=== PATIENT | male | born 1965 | race Caucasian/White ===

== ENCOUNTER 2016-12-20 18:38 | Emergency (ER) | payer OTHER ==
[2016-12-20] MEDS ORDERED: ONDANSETRON HCL 4 MG/2 ML VIAL ONE ×2 (19:40→20:53)
[2016-12-20 19:48] LABS: BLOOD UREA NITROGEN 19 mg/dL (9-20); CALCIUM 9.6 mg/dL (8.4-10.2); CHLORIDE 109 mmol/L (98-107); EST GLOMERULAR FILTRATION RATE 52 mL/min; GLUCOSE 78 mg/dL (70-100); MAGNESIUM 2.2 mg/dL (1.6-2.3); SODIUM 140 mmol/L (137-145)
[2016-12-20 19:56] LABS: BASOPHILS 0.4 % (0.0-2.0); EOSINOPHILS 1.8 % (0.0-6.0); EOSINOPHILS# 0.2 X 10^3uL (0.0-0.4); LYMPHOCYTES# 2.2 X 10^3uL (0.8-3.8); MEAN CELL VOLUME 101.8 fL (80.0-100.0); MEAN CORPUS. HGB CONCENTRATION 34.1 g/dL (32.0-36.0); MEAN CORPUSCULAR HEMOGLOBIN 34.7 pg (29.0-35.0); MEAN PLATELET VOLUME 7.4 fL (7.4-10.4); MONOCYTES 6.2 % (2.0-10.0); MONOCYTES# 0.6 X 10^3uL (0.2-1.0); NEUTROPHILS 68.6 % (54.0-75.0); NEUTROPHILS# 6.7 X 10^3uL (2.6-6.7); PLATELET COUNT 450 X 10^3uL (130-440); RED BLOOD COUNT 4.32 X 10^6uL (4.20-6.10); RED CELL DISTRIBUTION WIDTH 15.3 % (11.5-14.5); WHITE BLOOD COUNT 9.7 X 10^3uL (3.9-10.7)
[2016-12-20 20:02] LABS: TROPONIN I < 0.012 ng/mL (0.00-0.034)
[2016-12-20] MEDS ORDERED: IPRATROPIUM/ALBUTEROL 0.5/3 MG 3 ML AMPUL.NEB INHALATION ONE (20:52)
[2016-12-20] MEDS ORDERED: METHYLPREDNISOLONE SOD 125 MG/2 ML VIAL ONE (20:52)
--- NOTE | 2016-12-21 00:51 | ER PHYSICIAN DOCUMENTATION ---
Physician Documentation [place] Name:Jamie Mayorga Age:51 yrs Sex:Male :1965 Arrival Date:12/20/2016 Time:18:38 BedTrauma-C Private MD:Gerardo Hutson ED, John Disposition: 12/21/16 00:43 Discharged to Home/Self Care. Impression: Vomiting - Dehydration, COPD Exacerbation. - Condition is Good. - Discharge Instructions: COPD FLARE, VOMITING (4y-Adult). - Prescriptions for Prednisone 20 mg Oral Tablet - take 2 tablet by ORAL route once daily for 5 days; 10 tablet. Zofran 4 mg Oral Tablet - take 1-2 tablet by ORAL route every 4-6 hours As needed; 10 tablet. - Medical Reconciliation form form. - Follow up: Gerardo Hutson; When: 2 - 3 days; Reason: Continuance of care. - Problem is new. - Symptoms have improved. HPI: 12/21 00:35 This 51 yrs old Male presents to ER via Private Vehicle with complaints of jm Nausea/Vomiting, Chest Tightness. 12/20 19:00 Possible causes: unknown. Associated signs and symptoms: Pertinent negatives: abdominal jm pain. Severity of symptoms: in the emergency department the symptoms are unchanged. Pt also w mild chest tightness- Hx of COPD. Pt feels he is having a flare. Pt has been vomiting all day and feels weak. . 12/21 00:35 The patient presents to the emergency department with nausea, with vomiting. jm Historical: - Allergies: No known drug Allergies; - Home Meds: 1. Bupropion Oral 2. topiramate oral 3. Trazodone Oral 4. cyanocobalamin (vitamin B-12) oral 5. pantoprazole oral 6. gabapentin oral 7. Mirtazapine Oral 8. tamsulosin oral 9. Albuterol Nebulizer 10. duoneb 11. Tramadol Oral 12. Aspirin Oral - PMHx: barrets esophagus; hearing loss; PTSD; panic disorder; DEPRESSION; macrocytosis; OSTEOPOROSIS; BACK PAIN; lumbar compression fx; leukocytosis; thrombocytosis; MRSA; PNEUMONIA; pleural effusion; ANEMIA; oropharyngeal dysphagia; esophageal tumor; GERD; Vomiting - Dehydration (July 03, 2015); Diarrhea (July 03, 2015); pleural effusion; ANEMIA; low back pain; chronic alcoholism in remission; empyema of pleura; PNEUMOTHORAX; peptic ulcer disease; - PSHx: esophagus; chest tubes; - Tetanus: < 10 years. - Ebola Screening: : Patient negative for fever greater than or equal to 101.5 degrees Fahrenheit, and additional compatible Ebola Virus Disease symptoms. Patient denies exposure to infectious person. Patient denies travel to an Ebola-affected area in the 21 days before illness onset. No symptoms or risks identified at this time. . - Immunization history: Unable to Obtain. - Social history: Smoking status: Patient states former smoker of tobacco. ROS: 12/20 19:00 Constitutional: Negative for fatigue, fever. Cardiovascular: Positive for pressure. Respiratory: Positive for shortness of breath. Abdomen/GI: Positive for nausea, vomiting, Negative for diarrhea. Exam: 19:00 Constitutional: The patient appears alert, awake, pale. 19:00 Cardiovascular: Rate: normal, Rhythm: regular. 19:00 Respiratory: Respirations: normal, Breath sounds: bronchial sounds, that are mild, are scattered. 19:00 Abdomen/GI: Bowel sounds: normal, Palpation: abdomen is soft and non-tender. 19:00 Neuro: Mentation: is normal, Memory: is normal, Gait: is steady. Vital Signs: 18:46 Pulse Ox 88% ; rs 18:50 BP 91 / 62 (auto/); rs 18:51 Pulse 89 MON; Resp 14; Pulse Ox 95% ; rs 19:21 BP 82 / 58 (auto/); rs 19:21 Pulse 84 MON; Resp 21; Pulse Ox 97% ; rs 19:26 Pulse 84 MON; Resp 13; Pulse Ox 97% ; rs 19:30 BP 79 / 59 (auto/); rs 19:31 Pulse 82 MON; Resp 12; Pulse Ox 96% ; rs 19:36 Pulse 81 MON; Resp 19; Pulse Ox 96% ; rs 19:40 BP 88 / 61 (auto/); rs 19:41 Pulse 78 MON; Resp 16; Pulse Ox 96% ; rs 19:46 Pulse 77 MON; Resp 19; Pulse Ox 96% ; rs 19:50 BP 85 / 58 (auto/); rs 19:51 Pulse 78 MON; Resp 19; Pulse Ox 97% ; rs 19:56 Pulse 75 MON; Resp 12; Pulse Ox 97% ; rs 20:00 BP 88 / 61 (auto/); rs 20:01 Pulse 77 MON; Resp 15; Pulse Ox 97% ; rs 20:06 Pulse 79 MON; Resp 26; Pulse Ox 96% ; rs 20:10 BP 96 / 58 (auto/); rs 20:11 Pulse 78 MON; Resp 14; Pulse Ox 98% ; rs 20:16 Pulse 77 MON; Resp 16; Pulse Ox 97% ; rs 20:20 BP 76 / 55 (auto/); rs 20:21 Pulse 74 MON; Resp 13; Pulse Ox 96% ; rs 20:26 Pulse 74 MON; Resp 13; Pulse Ox 97% ; rs 20:30 BP 83 / 56 (auto/); rs 20:31 Pulse 72 MON; Resp 19; Pulse Ox 98% ; rs 20:36 Pulse 75 MON; Resp 17; Pulse Ox 97% ; rs 20:40 BP 85 / 59 (auto/); rs 20:41 Pulse 73 MON; Resp 18; Pulse Ox 99% ; rs 20:46 Pulse 74 MON; Resp 18; Pulse Ox 98% ; rs 20:50 BP 89 / 60 (auto/); rs 20:51 Pulse 76 MON; Resp 17; Pulse Ox 100% ; rs 20:56 Pulse 77 MON; Resp 16; Pulse Ox 95% ; rs 21:00 BP 87 / 59 (auto/); rs 21:01 Pulse 77 MON; Resp 17; Pulse Ox 97% ; rs 21:06 Pulse 77 MON; Resp 15; Pulse Ox 96% ; rs 21:10 BP 94 / 58; Pulse 78; Resp 11; Pulse Ox 95% on 2.5 lpm NC; Pain 0/10; rs 21:20 BP 80 / 54; Pulse 79; Resp 17; Pulse Ox 95% 2.5 lpm ; Pain 0/10; rs 22:20 BP 96 / 62 (auto/); bw2 12/21 00:50 BP 98 / 62; Pulse 72; Resp 18; Pulse Ox 94% on R/A; Pain 0/10; bw2 MDM: 12/20 18:51 Patient medically screened. tl1 12/21 01:32 Differential diagnosis: viral gastroenteritis, dehydration, COPD flare. Data reviewed: jm vital signs, nurses notes, lab test result(s), EKG, radiologic studies, and as a result, I will discharge patient. Test interpretation: by ED physician or midlevel provider: plain radiologic studies, ECG. Counseling: I had a detailed discussion with the patient and/or guardian regarding: the historical points, exam findings, and any diagnostic results supporting the discharge/admit diagnosis, lab results, radiology results, the need for outpatient follow up, with the patient's primary care provider. Medication response: The patient's symptoms have improved. Response to treatment: the patient's symptoms have markedly improved after treatment. ED course: Labs WNL. CXR/EKG normal. Pt very dehydrated b/c it took 3LNS to get him to make 20cc of urine (normal). Pt left after 4th L, but still w mildly low BPs. Pt felt much better on DC however. Will send w Zofran and prednisone for COPD flare. . 12/20 19:49 Order name: LACTATE; Complete Time: 19:53 EDMS 12/20 19:59 Order name: CBC AUTO DIF, MDIF/RMOR IF IND; Complete Time: 20:09 EDMS 12/20 20:03 Order name: BASIC METABOLIC PANEL; Complete Time: 20:09 EDMS 12/20 20:03 Order name: MAGNESIUM; Complete Time: 20:09 EDMS 12/20 20:03 Order name: BNP,NT-PRO; Complete Time: 20:09 EDMS 12/20 20:03 Order name: TROPONIN I; Complete Time: 20:09 EDMS 12/21 14:09 Order name: CXR 2V [id number] EDMS 12/20 18:41 Order name: 12-lead EKG; Complete Time: 19:44 tl1 12/20 18:41 Order name: Iv Saline Lock; Complete Time: 19:44 tl1 12/20 18:41 Order name: Place Patient On Monitor; Complete Time: 19:44 tl1 12/20 18:41 Order name: Pulse Ox Continuous; Complete Time: 19:44 tl1 Dispensed Medications: Completed: NS 0.9% 1000 ml 1000 ml IV at bolus in right hand once via [place] Tubing Completed: NS 0.9% 1000 ml 1000 ml IV at bolus in right hand once via [place] Tubing 12/20 19:30 Drug: NS 0.9% 1000 ml; Volume: 1000 ml; Route: IV; Rate: bolus; Site: right hand; rs Delivery: [place] [facility]ing; 20:10 Follow up: IV Status: Completed infusion; IV Intake: 1000ml rs 19:30 Drug: Zofran 4 mg; Route: IVP; Rate: 2 mg/min; Infused Over: 2 mins; Site: right hand; rs 20:15 Drug: NS 0.9% 1000 ml; Volume: 1000 ml; Route: IV; Rate: bolus; Site: right hand; rs Delivery: [place] Tubing; 21:15 Follow up: IV Status: Completed infusion; IV Intake: 1000ml rs 20:15 Drug: Zofran 4 mg; Route: IVP; Rate: 2 mg/min; Infused Over: 2 mins; Site: right hand; rs 21:18 Follow up: Response: Nausea is decreased rs 20:40 Drug: Solu-MEDROL 125 mg; Route: IVP; Rate: 62.5 mg/min; Infused Over: 2 mins; Site: rs right hand; 21:14 Follow up: Response: No adverse reaction rs 20:40 Drug: DuoNeb (Albuterol 2.5 mg, Atrovent 0.5 mg); 3 ml; Route: Nebulizer; Infused Over: rs 8 mins; 21:15 Follow up: Response: No adverse reaction rs 21:30 Drug: NS 0.9% 1000 ml; Volume: 1000 ml; Route: IV; Rate: bolus; Site: right hand; bw2 Delivery: [place] Tubing; 12/21 00:18 Follow up: IV Status: Completed infusion bw2 00:00 Drug: NS 0.9% 1000 ml; Route: IV; Rate: bolus; Site: right hand; bw2 00:44 Follow up: IV Status: Completed infusion bw2 Point of Care Testing: Urine Dip: 00:22 pH: 5.5; ; Specific [place]: 1.025; Ketones: Negative; Glucose: Negative; Protein: bw2 Negative; Leukocytes: Negative; Nitrite: Negative ; Blood: Negative; Signatures: Sandra Stanley RN RN rs Gilberto Rivas MD MD jm Leigh, Tom, MD MD 1 Cecy Hansen bw2
--- NOTE | 2016-12-21 00:51 | ER NURSING DOCUMENTATION ---
Nurse's Notes [facility] Name:Jamie Mayorga Age:51 yrs Sex:Male :1965 Arrival Date:12/20/2016 Time:18:38 BedTrauma-C Private MD:Gerardo Hutson Diagnosis:Vomiting - Dehydration;COPD Exacerbation Presentation: 12/20 18:41 Presenting complaint: Patient states: Started feeling sick 2 am with cough and rs vomiting, and chest tightness. He is SOB and has had chills without fever. Hx of COPD, pneumonia, bronchitis, ex-smoker x 1 yr. Uses oxygen at 2.5 L/min prn. Transition of care: patient was not received from another setting of care. Notified ED Physician of patient's arrival and CC Dr. Lundberg notified. 18:41 Acuity: JAYJAY 2 rs 18:41 Method Of Arrival: Private Vehicle rs Triage Assessment: 19:45 General: Appears ill, uncomfortable, well developed, well nourished, Behavior is rs cooperative, pleasant. Pain: Complains of pain in chest tightness. EENT: No deficits noted. Neuro: No deficits noted. Level of Consciousness is awake, alert, Oriented to person, place, time, event. Cardiovascular: Capillary refill is > 3 seconds Heart tones S1 S2 present Edema is absent. Pulses are 2+ in right radial artery Reports fatigue, Nausea shortness of breath Vomiting Denies syncope. Respiratory: Airway is patent Trachea midline Respiratory effort is even, unlabored, Respiratory pattern is regular, symmetrical, Sputum is brown Breath sounds are diminished in left posterior lower lobe, right posterior middle lobe and right posterior lower lobe. GI: Abdomen is flat, non- distended Bowel sounds present X 4 quads. Abd is soft and non tender Reports nausea, vomiting, Denies diarrhea. Derm: Skin is pale, Skin temperature is warm. Musculoskeletal: No deficits noted. Historical: - Allergies: No known drug Allergies; - Home Meds: 1. Bupropion Oral 2. topiramate oral 3. Trazodone Oral 4. cyanocobalamin (vitamin B-12) oral 5. pantoprazole oral 6. gabapentin oral 7. Mirtazapine Oral 8. tamsulosin oral 9. Albuterol Nebulizer 10. duoneb 11. Tramadol Oral 12. Aspirin Oral - PMHx: barrets esophagus; hearing loss; PTSD; panic disorder; DEPRESSION; macrocytosis; OSTEOPOROSIS; BACK PAIN; lumbar compression fx; leukocytosis; thrombocytosis; MRSA; PNEUMONIA; pleural effusion; ANEMIA; oropharyngeal dysphagia; esophageal tumor; GERD; Vomiting - Dehydration (July 03, 2015); Diarrhea (July 03, 2015); pleural effusion; ANEMIA; low back pain; chronic alcoholism in remission; empyema of pleura; PNEUMOTHORAX; peptic ulcer disease; - PSHx: esophagus; chest tubes; - Tetanus: < 10 years. - Ebola Screening: : Patient negative for fever greater than or equal to 101.5 degrees Fahrenheit, and additional compatible Ebola Virus Disease symptoms. Patient denies exposure to infectious person. Patient denies travel to an Ebola-affected area in the 21 days before illness onset. No symptoms or risks identified at this time. . - Immunization history: Unable to Obtain. - Social history: Smoking status: Patient states former smoker of tobacco. Screenin:52 Infectious Disease Risk None. Abuse screen: Denies threats or abuse. Nutritional rs screening: No deficits noted. Assessment: 21:19 Reassessment: Patient states feeling better. Patient states symptoms have improved. rs Vital Signs: 18:46 Pulse Ox 88% ; rs 18:50 BP 91 / 62 (auto/); rs 18:51 Pulse 89 MON; Resp 14; Pulse Ox 95% ; rs 19:21 BP 82 / 58 (auto/); rs 19:21 Pulse 84 MON; Resp 21; Pulse Ox 97% ; rs 19:26 Pulse 84 MON; Resp 13; Pulse Ox 97% ; rs 19:30 BP 79 / 59 (auto/); rs 19:31 Pulse 82 MON; Resp 12; Pulse Ox 96% ; rs 19:36 Pulse 81 MON; Resp 19; Pulse Ox 96% ; rs 19:40 BP 88 / 61 (auto/); rs 19:41 Pulse 78 MON; Resp 16; Pulse Ox 96% ; rs 19:46 Pulse 77 MON; Resp 19; Pulse Ox 96% ; rs 19:50 BP 85 / 58 (auto/); rs 19:51 Pulse 78 MON; Resp 19; Pulse Ox 97% ; rs 19:56 Pulse 75 MON; Resp 12; Pulse Ox 97% ; rs 20:00 BP 88 / 61 (auto/); rs 20:01 Pulse 77 MON; Resp 15; Pulse Ox 97% ; rs 20:06 Pulse 79 MON; Resp 26; Pulse Ox 96% ; rs 20:10 BP 96 / 58 (auto/); rs 20:11 Pulse 78 MON; Resp 14; Pulse Ox 98% ; rs 20:16 Pulse 77 MON; Resp 16; Pulse Ox 97% ; rs 20:20 BP 76 / 55 (auto/); rs 20:21 Pulse 74 MON; Resp 13; Pulse Ox 96% ; rs 20:26 Pulse 74 MON; Resp 13; Pulse Ox 97% ; rs 20:30 BP 83 / 56 (auto/); rs 20:31 Pulse 72 MON; Resp 19; Pulse Ox 98% ; rs 20:36 Pulse 75 MON; Resp 17; Pulse Ox 97% ; rs 20:40 BP 85 / 59 (auto/); rs 20:41 Pulse 73 MON; Resp 18; Pulse Ox 99% ; rs 20:46 Pulse 74 MON; Resp 18; Pulse Ox 98% ; rs 20:50 BP 89 / 60 (auto/); rs 20:51 Pulse 76 MON; Resp 17; Pulse Ox 100% ; rs 20:56 Pulse 77 MON; Resp 16; Pulse Ox 95% ; rs 21:00 BP 87 / 59 (auto/); rs 21:01 Pulse 77 MON; Resp 17; Pulse Ox 97% ; rs 21:06 Pulse 77 MON; Resp 15; Pulse Ox 96% ; rs 21:10 BP 94 / 58; Pulse 78; Resp 11; Pulse Ox 95% on 2.5 lpm NC; Pain 0/10; rs 21:20 BP 80 / 54; Pulse 79; Resp 17; Pulse Ox 95% 2.5 lpm ; Pain 0/10; rs 22:20 BP 96 / 62 (auto/); bw2 12/21 00:50 BP 98 / 62; Pulse 72; Resp 18; Pulse Ox 94% on R/A; Pain 0/10; bw2 ED Course: 12/20 18:39 Patient arrived in ED. ama 18:39 Gerardo Hutson is Private Physician. ama 18:39 Sterling Lundberg MD is Attending Physician. tl1 18:41 Sandra Stanley, BALDO is Primary Nurse. rs 18:45 Notified ED Physician of patient's arrival and chief complaint. Dr. Lundberg notified. Arm rs band placed on Bed in low position Call Light in Reach HOB Elevated Side rails up x1 Emesis basin given. Family accompanied patient. EKG done per protocol. Labs ordered per protocol. X-ray done. X-ray ordered. 18:45 quality assurance monitor body on. Pulse ox on. NIBP On - RN Monitoring Only. rs 18:55 Triage completed. rs 19:18 Attending Physician role handed off by Sterling Lundberg MD jm 19:18 Gilberto Rivas MD is Attending Physician. jm 19:20 Patient moved to radiology. tt 19:20 Patient moved back from radiology. tt 19:52 Door closed. Noise minimized. Verbal reassurance given. rs 21:19 Valuables Remains with patient. rs 21:20 Inserted peripheral IV: 20 gauge in right hand and blood collected. rs 12/21 00:43 Gerardo Hutson is Referral Physician. yosef Administered Medications: Completed: NS 0.9% 1000 ml 1000 ml IV at bolus in right hand once via [place] Tubing Completed: NS 0.9% 1000 ml 1000 ml IV at bolus in right hand once via [place] Tubing 03 19:30 Drug: NS 0.9% 1000 ml; Volume: 1000 ml; Route: IV; Rate: bolus; Site: right hand; rs Delivery: [place] Tubing; 20:10 Follow up: IV Status: Completed infusion; IV Intake: 1000ml rs 19:30 Drug: Zofran 4 mg; Route: IVP; Rate: 2 mg/min; Infused Over: 2 mins; Site: right hand; rs 20:15 Drug: NS 0.9% 1000 ml; Volume: 1000 ml; Route: IV; Rate: bolus; Site: right hand; rs Delivery: [place] Tubing; 21:15 Follow up: IV Status: Completed infusion; IV Intake: 1000ml rs 20:15 Drug: Zofran 4 mg; Route: IVP; Rate: 2 mg/min; Infused Over: 2 mins; Site: right hand; rs 21:18 Follow up: Response: Nausea is decreased rs 20:40 Drug: Solu-MEDROL 125 mg; Route: IVP; Rate: 62.5 mg/min; Infused Over: 2 mins; Site: rs right hand; 21:14 Follow up: Response: No adverse reaction rs 20:40 Drug: DuoNeb (Albuterol 2.5 mg, Atrovent 0.5 mg); 3 ml; Route: Nebulizer; Infused Over: rs 8 mins; 21:15 Follow up: Response: No adverse reaction rs 21:30 Drug: NS 0.9% 1000 ml; Volume: 1000 ml; Route: IV; Rate: bolus; Site: right hand; bw2 Delivery: [place] Tubing; 12/21 00:18 Follow up: IV Status: Completed infusion bw2 00:00 Drug: NS 0.9% 1000 ml; Route: IV; Rate: bolus; Site: right hand; bw2 00:44 Follow up: IV Status: Completed infusion bw2 Point of Care Testing: Urine Dip: 00:22 pH: 5.5; ; Specific [place]: 1.025; Ketones: Negative; Glucose: Negative; Protein: bw2 Negative; Leukocytes: Negative; Nitrite: Negative ; Blood: Negative; Intake: 12/20 20:10 IV: 1000ml; Total: 1000ml. rs 21:15 IV: 1000ml; Total: 2000ml. rs Outcome: 21:37 Report given to Cecy Wilhelm RN [facility] rs 12/21 00:43 Discharge ordered by . 00:50 Discharged to home ambulatory, with family. bw2 00:50 Condition: good 00:50 Discharge Assessment: Patient awake, alert and oriented x 3. No cognitive and/or functional deficits noted. Patient verbalized understanding of disposition instructions. 00:50 Discharge instructions given to patient, significant other, Instructed on follow up and referral plans. medication usage, Demonstrated understanding of instructions, Prescriptions given X 2. 00:51 Patient left the ED. bw2 Signatures: Sandra Stanley RN RN rs Meyer, John, MD MD jm Terriere, Tracy tt Nhan Evans, Brandon Reg Sterling Salazar MD MD [facility] Cecy Hansen bw2
--- NOTE | 2016-12-21 13:24 | RADIOLOGY REPORT ---
Two views of the chest are compared with prior examination dated 07/03/2015. The heart and vessels are stable and unremarkable. Stable bibasilar scarring is noted. Lung coelho are otherwise. IMPRESSION: Stable bibasilar scarring. MTDD
== END 2016-12-21 00:51 | disposition home or self-care (01) ==
LOC: ER 18:38
DX: E86.0 Dehydration (principal); R11.2 Nausea with vomiting, unspecified; J44.1 Chronic obstructive pulmonary disease with (acute) exacerbation; R06.02 Shortness of breath; R07.89 Other chest pain; I95.9 Hypotension, unspecified; I95.1 Orthostatic hypotension; Z79.82 Long term (current) use of aspirin; Z79.899 Other long term (current) drug therapy
CPT/HCPCS: 71020; 80048; 83605; 83735; 83880; 84484; 85025; 94640; 96361; 96374; 96375; 96376; 99285; J2405; J2930; J7620